=== PATIENT | male | born 1970 | race Caucasian/White ===

== ENCOUNTER 2021-09-17 06:56 | Day surgery (SDC) | payer OTHER, SELFPAY ==
[2021-09-13 11:00] VITALS: BMI 31.0
[2021-09-17 07:15] VITALS: BP 137/93; PULSE 79; RESP 18; TEMP 36.4; O2SAT 97
[2021-09-17] MEDS: sodium chloride 0.9% 1,000 ML 30 ML IV (07:35)
--- NOTE | 2021-09-17 07:38 | W.PM.OPSFHP ---
Same Day Surgery H&P Indication for Procedure/HPI DATE OF PROCEDURE: September 17, 2021 CHIEF COMPLAINT/INDICATIONFOR SURGICAL PROCEDURE: Screening PREOP DIAGNOSIS: Screen PLANNED PROCEDURE: Operation Date: 09/17/21 08:15 Proposed Procedures p Colonoscopy 58877,Z12.11(Not Applicable) - Wilfred Monroy MD Medications/Allergies* Home Medications Medication Instructions Recorded Confirmed Type lisinopril 10 mg tablet 5 mg PO DAILY 08/28/21 09/13/21 History omeprazole 20 mg capsule,delayed 20 mg PO DAILY PRN Acid Reflux 08/28/21 09/13/21 History release tamsulosin 0.4 mg capsule 0.4 mg PO DAILY 08/28/21 09/13/21 History cholecalciferol (vitamin D3) 125 125 mcg PO DAILY 09/13/21 09/13/21 History mcg (5,000 unit) tablet (Vitamin D3) coenzyme Q10 30 mg capsule (CoQ-10) 30 mg PO DAILY 09/13/21 09/13/21 History saw palmetto 80 mg capsule 320 mg PO DAILY 09/13/21 09/13/21 History vitamin A 2,400 mcg capsule 2,400 mcg PO DAILY 09/13/21 09/13/21 History zinc 50 mg tablet 50 mg PO DAILY 09/13/21 09/13/21 History Allergies/Adverse Reactions Allergy/AdvReac Type Severity Reaction Status Date / Time No Known Allergies Allergy Unverified 09/13/21 10:47 Current Medications: Generic Name Dose Route Start Last Admin Trade Name Freq PRN Reason Stop Dose Admin Sodium Chloride 1,000 mls @ 30 mls/hr 09/17/21 07:30 09/17/21 07:35 Sodium Chloride 0.9% IV 30 mls/hr .Q24H YOLANDA Administration Pertinent Exam Findings alert, oriented x 3, clear to auscultation bilaterally, regular rate & rhythm, operative site marked and procedure specific exam findings Recommendations Surgery/Procedure today Coding Level of Care Code 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
--- NOTE | 2021-09-17 07:42 | ANES.PREANE2 ---
Pre-Anesthetic Assessment Height/Weight: Height 1.75 m Weight 95.254 kg Temp Pulse Resp BP Pulse Ox O2 Del Method 97.6 F 79 18 137/93 97 09/17/21 07:15 09/17/21 07:15 09/17/21 07:15 09/17/21 07:15 09/17/21 07:15 09/17/21 07:15 Preop Diagnosis: Screen Operation Date: 09/17/21 08:15 Proposed Procedures p Colonoscopy 40504,Z12.11(Not Applicable) - Wilfred Monroy MD Familial anesthetic complications: None Was Beta Vani taken within 24 hours: N/A Was Clonidine taken within 24 hours: N/A Last intake: Intake Last Liquid Date 09/16/21 Last Liquid Time 22:00 Last Solid Date 09/15/21 Last Solid Time 22:00 Social No alcohol and No tobacco Exam alert, oriented x 3, clear to auscultation bilaterally and regular rate & rhythm Airway Mallampati: Class II Dentition: other (multiple misisng, implants, crowns) Comments: Comments: Full gudino CV/HEM Hypertension family hx of heart valve issues, but no personal history GI Gastroesophageal Reflux Disease Anesthetic Plan ASA status: 2 Anesthesia: MAC Risk of > 500 ml blood loss (7ml/kg in children): No Medications/Allergies Home Medications Medication Instructions Recorded Confirmed Last Taken Type lisinopril 10 mg tablet 5 mg PO DAILY 08/28/21 09/13/21 Unknown History omeprazole 20 mg capsule,delayed 20 mg PO DAILY PRN Acid Reflux 08/28/21 09/13/21 Unknown History release tamsulosin 0.4 mg capsule 0.4 mg PO DAILY 08/28/21 09/13/21 Unknown History peg 3350-electrolytes 236 240 ml PO Q10M #4,000 mL 09/11/21 09/13/21 Unknown Rx gram-22.74 gram-6.74 gram-5.86 gram solution (Golytely) cholecalciferol (vitamin D3) 125 125 mcg PO DAILY 09/13/21 09/13/21 Unknown History mcg (5,000 unit) tablet (Vitamin D3) coenzyme Q10 30 mg capsule (CoQ-10) 30 mg PO DAILY 09/13/21 09/13/21 Unknown History saw palmetto 80 mg capsule 320 mg PO DAILY 09/13/21 09/13/21 Unknown History vitamin A 2,400 mcg capsule 2,400 mcg PO DAILY 09/13/21 09/13/21 Unknown History zinc 50 mg tablet 50 mg PO DAILY 09/13/21 09/13/21 Unknown History Allergies Allergy/AdvReac Type Severity Reaction Status Date / Time No Known Allergies Allergy Unverified 09/13/21 10:47 Current Medications Generic Name Dose Route Start Last Admin Trade Name Freq PRN Reason Stop Dose Admin Sodium Chloride 1,000 mls @ 30 mls/hr 09/17/21 07:30 09/17/21 07:35 Sodium Chloride 0.9% IV 30 mls/hr .Q24H YOLANDA Administration Data Anesthesia Cardiac Studies: No Data to Display
[2021-09-17 08:34] VITALS: BP 124/83; PULSE 58; RESP 18; TEMP 36.2; O2SAT 96
--- NOTE | 2021-09-17 08:36 | ANE.PACU2 ---
Inpatient post-anesthesia follow up: Airway intact: Yes Vital signs: Temperature 97.6 F Pulse Rate 79 Respiratory Rate 18 Blood Pressure 137/93 Pulse Oximetry 97 Oxygen Delivery Me thod Room Air Oxygen Flow Rate Fraction of Inspir ed Oxygen Hydration adequate: Yes Nausea and vomiting: No Pain level: 1 Mental status: Baseline
[2021-09-17 08:44] VITALS: BP 127/82; PULSE 54; RESP 18; O2SAT 96
[2021-09-17 08:51] VITALS: BP 134/81; PULSE 57; RESP 18; O2SAT 96
== END 2021-09-17 09:10 | disposition home or self-care (01) ==
PROVIDERS: PCP Family Medicine; Visit Provider Internal Medicine
PROC: 0DJD8ZZ Inspection of Lower Intestinal Tract, Via Natural or Artificial Opening Endoscopic (ICD-10-PCS; CPT 45378; principal; 2021-09-17 08:15)
DX: Z12.11 Encounter for screening for malignant neoplasm of colon (principal); I10 Essential (primary) hypertension; Z82.49 Family history of ischemic heart disease and other diseases of the circulatory system; K21.9 Gastro-esophageal reflux disease without esophagitis
CPT/HCPCS: 45378; J2704; J7030

== ENCOUNTER 2023-12-11 10:39 | Emergency (ER) | payer OTHER, SELFPAY ==
[2023-12-11 10:43] VITALS: BP 175/105; PULSE 66; TEMP 36.4; O2SAT 99; BMI 30.1
[2023-12-11 11:42] VITALS: BP 170/110; PULSE 69; RESP 18; O2SAT 100
--- NOTE | 2023-12-11 11:57 | CT_ITS ---
WS: [id number] CT ABDOMEN AND PELVIS WITH CONTRAST HISTORY: abd pain TECHNIQUE: Imaging performed of the abdomen and pelvis with IV contrast. Single phase imaging of the abdomen. Coronal and sagittal reformats are submitted. All CT scans at [facility] use at [address] one of these dose optimization techniques: automated exposure control; mA and/or kV adjustment per patient size (includes targeted exams where dose is matched to clinical indication); or iterative re construction. IV CONTRAST: Omnipaque 350; 100 mL IV. Oral contrast: No DLP: 749.63 mGy.cm COMPARISON: None available. Lower thorax: Dependent changes at the lung bases. Heart is normal size. Small hiatal hernia. Liver/biliary system: Heterogeneous enhancement attenuation throughout the liver. No mass. Gallbladder: Gallbladder is mildly hydropic with a transverse diameter of 4.8 cm. There is mild irreg ularity of the wall and a small amount of edema. No definite stones identified by CT. Pancreas: Normal size pancreas and pancreatic duct. No adjacent inflammation. Spleen: Normal size spleen. No mass or infarct. Adrenal glands: Normal. Right kidney: Normal. Left kidney: Normal. Aorta: Normal. Lymphadenopathy: None. Free fluid: Very small amount of fluid adjacent to the inferior RIGHT lobe of the liver. GI tract: Nondistended stomach. No small bowel obstruction. 14 mm outpouching along the medial curvat ure of the duodenum contains air. Differential is contained duodenal ulcer or a small diverticulum. T here is mild hyperemia of the adjacent duodenum. There is additional hyperemia of the proximal duoden um with focus of air in the duodenal wall with hyperemia. Suspect additional duodenal ulcer. Diffuse constipation. Normal appendix. Abdominal wall: Ventral abdominal wall hernias. Hernias contain fat only. Pelvis: No free fluid or adenopathy within the pelvis. Prostate gland is enlarged encroaching upon th e bladder. Central calcifications. Bones: Unremarkable. CT/CT abdomen pelvis w con* [id number] IMPRESSION: 1. Mildly hydropic gallbladder with very minimal wall irregularity. No signifi cant pericholecystic fluid. Consider follow-up gallbladder ultrasound to evalua te for pericholecystic edema or stones. 2. Focal outpouching with air from the medial duodenum measures 14 mm. Small c ontained duodenal ulcer versus diverticulum. 3. Additional duodenal focus of air extending into the submucosa suspicious fo r early duodenal ulcer. There is associated hyperemia at this location. 4. Ventral abdominal wall hernia. 5. Tiny amount of fluid adjacent to the liver. 6. Normal appendix.
--- NOTE | 2023-12-11 12:03 | W.ED.ABDPA2 ---
HPI - Abdominal Pain General: Chief Complaint: Abdominal Pain Stated Complaint: Gastric pressure, bloating, pain - [facility] Time Seen by Provider: 12/11/23 11:40 Source: patient Mode of arrival: ambulatory Limitations: no limitations History of Present Illness: 53-year-old male who states that last 2 days may have some epigastric abdominal pain he states he been feeling bloating and fullness especially after eating states has been belching a lot as well he states he had gastritis in the past he is to be on omeprazole but does not take it anymore he denies any fevers denies any chest pain. Associated Symptoms: Denies chills, diarrhea, fever(s), nausea and vomiting Related Data Home Medications Medication Instructions Recorded Confirmed tamsulosin 0.4 mg capsule 0.4 mg PO DAILY 08/28/21 12/11/23 cholecalciferol (vitamin D3) 125 125 mcg PO DAILY 09/13/21 12/11/23 mcg (5,000 unit) tablet (Vitamin D3) vitamin A 2,400 mcg capsule 2,400 mcg PO DAILY 09/13/21 12/11/23 coenzyme Q10 30 mg capsule 30 mg PO DAILY 12/11/23 12/11/23 lisinopril 20 mg tablet 10 mg PO DAILY 12/11/23 12/11/23 magnesium 250 mg tablet 500 mg PO DAILY 12/11/23 12/11/23 methylphenidate HCl 20 mg tablet 20 mg PO TID 12/11/23 12/11/23 selenium 100 mcg tablet 100 mcg PO DAILY 12/11/23 12/11/23 vitamin C 45 mg-zinc citrate 3.75 2 tab PO DAILY 12/11/23 12/11/23 mg-elderberry 50 mg chewable tablet ([employer]) Previous Rx's Medication Instructions Recorded amoxicillin 500 mg-potassium 1 tab PO BID #60 tabs 12/11/23 clavulanate 125 mg tablet (Augmentin) ondansetron 4 mg disintegrating 4 mg PO Q6H PRN nausea and 12/11/23 tablet vomiting #14 tabs pantoprazole 40 mg tablet,delayed 40 mg PO DAILY #60 tabs 12/11/23 release (Protonix) Allergies Allergy/AdvReac Type Severity Reaction Status Date / Time No Known Allergies Allergy Verified 12/11/23 10:49 Review of Systems Const: Denies: fever(s), chills, body aches or change in appetite Eyes: Denies: blurry vision or eye discomfort ENMT: Denies: throat pain or dental pain Card: Denies: chest pain Resp: Denies: dyspnea GI: Denies: abdominal pain, nausea, vomiting or diarrhea Musc: Denies: neck pain or back pain Skin/Breast: Denies: rash Neuro: Denies: headache(s) Physical Exam Const: COMMON NORMALS: no acute distress, patient oriented x3 and healthy appearing HENMT: COMMON NORMALS: normocephalic and atraumatic HEAD & SCALP: normocephalic and atraumatic Neck/C-Spine: COMMON NORMALS: full ROM and supple Chest: COMMONS NORMALS: normal inspection of the chest Resp: COMMON NORMALS: normal respiratory effort, No retractions, No use of accessory muscles and clear to auscultation bilaterally AUSCULTATION: clear to auscultation bilaterally Cardio: COMMON NORMALS: regular rate, regular rhythm and No murmurs present (Cardio) RATE: regular rate RHYTHM: regular rhythm GI: COMMON NORMALS: Normal to inspection, nondistended, normoactive bowel sounds present, Soft to palpation, non-tender and no masses PALPATION: Yes Soft to palpation Extremity: COMMON NORMALS: normal to inspection and full ROM Neuro: COMMON NORMALS: patient oriented x3, moves all extremities and no focal motor deficits Psych: COMMON NORMALS: mental status grossly normal, Normal thought process present and cooperative THOUGHT PROCESS: Normal thought process present Skin: COMMON NORMALS: no rashes or lesions noted and no wounds GENERAL SKIN EXAM: no rashes or lesions noted Course Vital Signs: Vital signs: Vital Signs Temperature 97.6 F 12/11/23 10:43 Pulse Rate 66 12/11/23 14:00 Respiratory Rate 16 12/11/23 14:00 Blood Pressure 139/74 12/11/23 14:00 Pulse Oximetry 100 12/11/23 14:00 Oxygen Delivery Me thod Room Air 12/11/23 14:00 MDM - Abdominal Pain Medical Decision Making Patient presents here with abdominal pain and have enlarged gallbladder on ultrasound but no signs of cholecystitis mildly elevated bilirubin here but no signs of common bile duct obstruction no signs of ascending cholangitis his pain here was resolved after GI cocktail abdominal exam at discharge is benign I did speak to surgeon Dr. Liz Angel will start him on Augmentin and Protonix and we will get him follow-up with surgery he is to return to ER if he is worsening he understands agrees to plan. Medical Records I reviewed the patient's medical records. Lab Data I reviewed the patient's lab results. 12/11/23 11:20 12/11/23 11:20 Labs/Radiology: Radiology Impressions Abdomen/Pelvis CT 12/11/23 11:57 IMPRESSION: 1. Mildly hydropic gallbladder with very minimal wall irregularity. No significant pericholecystic fluid. Consider follow-up gallbladder ultrasound to evaluate for pericholecystic edema or stones. 2. Focal outpouching with air from the medial duodenum measures 14 mm. Small contained duodenal ulcer versus diverticulum. 3. Additional duodenal focus of air extending into the submucosa suspicious for early duodenal ulcer. There is associated hyperemia at this location. 4. Ventral abdominal wall hernia. 5. Tiny amount of fluid adjacent to the liver. 6. Normal appendix. Gallbladder Ultrasound 12/11/23 13:03 IMPRESSION: 1. Mild gallbladder hydrops. No stones or pericholecystic fluid. No Bridges sign elicited. The gallbladder wall is top normal size to slightly enlarged. No specific findings to suggest strong correlation with acute cholecystitis. 2. No bile duct dilatation. Laboratory Results WBC 8.51 10^3/uL (3.29-11.43) 12/11/23 11:20 RBC 5.97 10^6/uL (3.85-5.65) H 12/11/23 11:20 Hgb 17.60 g/dL (11.27-16.99) H 12/11/23 11:20 Hct 50.1 % (37-53) 12/11/23 11:20 MCV 83.9 fl (82-101) 12/11/23 11:20 MCH 29.5 pg (27-33) 12/11/23 11:20 MCHC 35.1 g/dL (30-55) 12/11/23 11:20 RDW 12.7 % (12.1-15.1) 12/11/23 11:20 Plt Count 198 10^3/cmm (157-399) 12/11/23 11:20 MPV 9.5 fL (7.4-10.4) 12/11/23 11:20 Neut % (Auto) 82.8 % 12/11/23 11:20 Lymph % (Auto) 7.5 % 12/11/23 11:20 Rice % (Auto) 8.6 % 12/11/23 11:20 Eos % (Auto) 0.2 % 12/11/23 11:20 Baso % (Auto) 0.4 % 12/11/23 11:20 Neut # (Auto) 7.05 10^3/uL (1.8-7.7) 12/11/23 11:20 Lymph # (Auto) 0.6 10^3/uL (0.8-4.8) L 12/11/23 11:20 Rice # (Auto) 0.7 10^3/uL (0.2-0.9) 12/11/23 11:20 Eos # (Auto) 0.0 10^3/uL (0.0-0.8) 12/11/23 11:20 Baso # (Auto) 0.0 10^3/uL (0.0-0.1) 12/11/23 11:20 Nucleated RBC % (auto) 0 % 12/11/23 11:20 Nucleated RBCs # 0.0 /100WBC 12/11/23 11:20 Sodium 138 mmol/L (136-145) 12/11/23 11:20 Potassium 3.8 mmol/L (3.5-5.1) 12/11/23 11:20 Chloride 100 mmol/L (98-107) 12/11/23 11:20 Carbon Dioxide 25 mmol/L (22-29) 12/11/23 11:20 Anion Gap 16.8 (5-19) 12/11/23 11:20 BUN 16 mg/dL (6-20) 12/11/23 11:20 Creatinine 1.2 mg/dL (0.7-1.2) 12/11/23 11:20 GFR Calculation 62.9 mL/min (90-130) L 12/11/23 11:20 Glucose 118 mg/dL (65-115) H 12/11/23 11:20 Calculated Osmolality 288 mOsm/kg (285-295) 12/11/23 11:20 Calcium 8.9 mg/dL (8.5-10.5) 12/11/23 11:20 Total Bilirubin 3.5 mg/dL (0.15-1.2) H 12/11/23 11:20 AST 95 U/L (0-40) H 12/11/23 11:20 ALT 364 U/L (0-41) H 12/11/23 11:20 Alkaline Phosphatase 281 U/L (40-130) H 12/11/23 11:20 Total Protein 7.5 g/dL (6.6-8.7) 12/11/23 11:20 Albumin 4.3 g/dL (3.5-5.2) 12/11/23 11:20 Globulin 3.2 g/dL (1.3-4.6) 12/11/23 11:20 Lipase 39 U/L (13-60) 12/11/23 11:20 Urine Color Dark yellow (Yellow) A 12/11/23 13:20 Urine Appearance Clear (CLEAR) 12/11/23 13:20 Urine pH 7.5 (5-7) 12/11/23 13:20 Ur Specific [place] 1.040 (1.005-1.030) H 12/11/23 13:20 Urine Protein 1+ (Negative) A 12/11/23 13:20 Urine Glucose (UA) Negative (Normal) 12/11/23 13:20 Urine Ketones 1+ (Negative) H 12/11/23 13:20 Urine Blood Negative (Negative) 12/11/23 13:20 Urine Nitrate Negative (Negative) 12/11/23 13:20 Urine Bilirubin Negative (Negative) 12/11/23 13:20 Urine Urobilinogen 1.0 mg/dL (Negative) 12/11/23 13:20 Ur Leukocyte Esterase Negative (Negative) 12/11/23 13:20 Urine RBC 0-2 /hpf (0-2) 12/11/23 13:20 Urine WBC 0-5 /hpf (0-5) 12/11/23 13:20 Ur Squamous Epith Cells 0-5 /hpf (0-5) 12/11/23 13:20 Amorphous Sediment Not Reportable 12/11/23 13:20 Urine Bacteria None seen /hpf (NONE) 12/11/23 13:20 Hyaline Casts 0-4 /lpf H 12/11/23 13:20 All radiology interpretation(s) finalized by discharge EKG Data EKG 1: I personally reviewed and interpreted this EKG as follows: EKG interpretation date: 12/11/23 EKG interpretation time: 12:20 Interpretation: nsr hr [address] or t wave abnormalities qrs 103 qtc 426 Discharge Plan Discharge Patient Disposition: Home Clinical Impression: Abdominal pain Condition: Stable Prescriptions: New pantoprazole [Protonix] 40 mg tablet,delayed release (DR/EC) 40 mg PO DAILY Qty: 60 0RF ondansetron 4 mg tablet,disintegrating 4 mg PO Q6H PRN (Reason: nausea and vomiting) Qty: 14 0RF amoxicillin-pot clavulanate [Augmentin] 500-125 mg tablet 1 tab PO BID Qty: 60 0RF No Action tamsulosin 0.4 mg capsule 0.4 mg PO DAILY vitamin A 2,400 mcg Capsule 2,400 mcg PO DAILY cholecalciferol (vitamin D3) [Vitamin D3] 125 mcg (5,000 unit) Tablet 125 mcg PO DAILY lisinopril 20 mg Tablet 10 mg PO DAILY magnesium 250 mg Tablet 500 mg PO DAILY selenium 100 mcg Tablet 100 mcg PO DAILY coenzyme Q10 [CoQ-10] 30 mg Capsule 30 mg PO DAILY [employer] 45-3.75-50 mg Tablet,Chewable 2 tab PO DAILY methylphenidate HCl 20 mg tablet 20 mg PO TID Discharge Orders: Discharge ED (Routine); Ordered 12/11/23 Ordered By: Mya Jimenez Referrals: Flaquita Isabel MD [Primary Care Provider] - Discharge Diet: Advance as tolerated Discharge Activity: Resume usual activity Patient Instructions: Abdominal Pain (ED) Coding Level of Care Code 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
[2023-12-11] MEDS: lidocaine 2% viscous 15 ML, aluminum-mag hydrox-simethicon 30 ML, sucralfate oral liq 1 GM PO (12:17)
[2023-12-11] MEDS: ondansetron 2 mg/ML SDV 2 mL 4 MG IVP (12:17)
--- NOTE | 2023-12-11 12:20 | ECG_ITS ---
[facility] Test Date: 2023-12-11 Pat Name: Khris Scott Department: Room: Gender: Male Color Tester: : 1970 Requested By: Mya Jimenez Order Number: [id number] Franki MD: Rickey Amaya M.D. Measurements Intervals [place] Rate: 63 P: 35 MT: 140 QRS: 10 QRSD: 103 T: 29 QT: 419 QTc: 430 Interpretive Statements SINUS RHYTHM POSSIBLE LEFT ATRIAL ENLARGEMENT [-0.1mV P-WAVE IN V1/V2] SEPTAL MYOCARDIAL INFARCTION , OF INDETERMINATE AGE No previous ECG available for comparison Electronically Signed On 12-11-2023 17:13:30 CDT by Rickey Amaya M.D. [email or web address]
[2023-12-11 12:27] LABS: Basophils % 0.4 %; Eosinophils % 0.2 %; Hematocrit 50.1 % (37-53); Lymphocytes # 0.6 10^3/uL (0.8-4.8); Lymphocytes % 7.5 %; Mean Corpuscular HGB Conc 35.1 g/dL (30-55); Mean Corpuscular Hemoglobin 29.5 pg (27-33); Mean Corpuscular Volume 83.9 fl (82-101); Mean Platelet Volume 9.5 fL (7.4-10.4); Monocytes # 0.7 10^3/uL (0.2-0.9); Monocytes % 8.6 %; Neutrophils # 7.05 10^3/uL (1.8-7.7); Neutrophils % 82.8 %; Nucleated Red Blood Cells % 0 %; Platelet Count 198 10^3/cmm (157-399); Red Blood Count 5.97 10^6/uL (3.85-5.65); Red Cell Distribution Width 12.7 % (12.1-15.1); White Blood Count 8.51 10^3/uL (3.29-11.43)
[2023-12-11 12:38] LABS: Alanine Aminotransferase 364 U/L (0-41); Albumin Level 4.3 g/dL (3.5-5.2); Alkaline Phosphatase 281 U/L (40-130); Anion Gap 16.8 (5-19); Aspartate Amino Transferase 95 U/L (0-40); Blood Urea Nitrogen 16 mg/dL (6-20); Calcium 8.9 mg/dL (8.5-10.5); Carbon Dioxide 25 mmol/L (22-29); Chloride 100 mmol/L (98-107); Creatinine Clr Calc Pharmacy 78.1461; Globulin 3.2 g/dL (1.3-4.6); Glomerular Filtration Rate 62.9 mL/min (90-130); Glucose 118 mg/dL (65-115); Lipase 39 U/L (13-60); Osmolality Calculated 288 mOsm/kg (285-295); Potassium 3.8 mmol/L (3.5-5.1); Sodium 138 mmol/L (136-145); Total Bilirubin 3.5 mg/dL (0.15-1.2); Total Protein 7.5 g/dL (6.6-8.7)
--- NOTE | 2023-12-11 13:03 | US_ITS ---
WS: [id number] RIGHT UPPER QUADRANT ULTRASOUND HISTORY: ruq pain COMPARISON: None available. Liver: 16.9 cm in length. Normal size liver and echogenicity. No bile duct dilatation or mass. Portal Vein: Normal hepatopetal flow with monophasic waveform. Gallbladder: Mildly hydropic gallbladder. No pericholecystic fluid. No stones are identified. The gal lbladder wall is just slightly enlarged to 4 mm. CBD: 0.4 cm Pancreas: Normal size and echogenicity. Right kidney: 9.7 cm in length. Normal size and echogenicity. No hydronephrosis or mass. Aorta and IVC: Unremarkable abdominal aorta and IVC. No ascites. US/US gall bladder [id number] IMPRESSION: 1. Mild gallbladder hydrops. No stones or pericholecystic fluid. No Bridges sig n elicited. The gallbladder wall is top normal size to slightly enlarged. No sp ecific findings to suggest strong correlation with acute cholecystitis. 2. No bile duct dilatation.
[2023-12-11 13:31] VITALS: BP 180/106; PULSE 64; RESP 18; O2SAT 96
[2023-12-11] MEDS: hyDRALAzine 20 mg/mL INJ 1 mL 10 MG IVP (13:33)
[2023-12-11 13:41] LABS: Bilirubin Urine Negative (Negative); Blood Urine Negative (Negative); Glucose Urine UA Negative (Normal); Ketones Urine 1+ (Negative); Leukocyte Esterase Urine Negative (Negative); Nitrate Urine Negative (Negative); Protein Urine 1+ (Negative); Urine Appearance Clear (CLEAR); Urine Color Dark Yellow (Yellow); pH Urine 7.5 (5-7)
[2023-12-11 13:47] LABS: Add Urine Microscopic? YES; Bacteria Urine None Seen /hpf; Hyaline Casts Urine 0-4 /lpf; RBC Urine 0-2 /hpf (0-2); Squamous Epithelial Cell Urine 0-5 /hpf (0-5); WBC Urine 0-5 /hpf (0-5)
--- NOTE | 2023-12-11 13:50 | PC.PHAR ---
Pt states he attempted to take morning medications and promptly threw them up.
[2023-12-11 13:56] LABS: Add Urine Culture? No
[2023-12-11 14:00] VITALS: BP 139/74; PULSE 66; RESP 16; O2SAT 100
[2023-12-11 14:50] VITALS: BP 161/90; PULSE 89; O2SAT 96
--- NOTE | 2023-12-12 07:32 | DCPLANNER ---
message sent to gen surg for er f/u
== END 2023-12-11 14:51 | disposition home or self-care (01) ==
PROVIDERS: Emergency Provider Emergency Medicine; PCP Family Medicine
DX: R10.9 Unspecified abdominal pain (principal)
CPT/HCPCS: 36415; 74177; 76705; 80053; 81001; 83690; 85025; 93005; 96374; 96375; 99285; J0360; J2405; Q9967

== ENCOUNTER → 2023-12-18 13:51 | Outpatient (BNVA) | payer OTHER, SELFPAY | PROVIDERS: PCP Family Medicine; Referring Provider Emergency Medicine; Visit Provider Student in an Organized Health Care Education/Training Program | DX: R10.11 Right upper quadrant pain (principal) | CPT/HCPCS: 36415; 80053; 82150; 83690; 85025; 86705; 86706; 86709; 86803; 87340; 99204 ==

== ENCOUNTER → 2024-01-06 08:48 | Outpatient (BNVA) | payer OTHER, SELFPAY | PROVIDERS: PCP Family Medicine; Visit Provider Student in an Organized Health Care Education/Training Program | DX: K81.9 Cholecystitis, unspecified (principal) | CPT/HCPCS: 99214 ==

== ENCOUNTER 2024-02-20 09:31 | Outpatient (CLI) | payer OTHER, SELFPAY ==
--- NOTE | 2024-02-20 09:34 | US_ITS ---
WS: [id number] RIGHT UPPER QUADRANT ULTRASOUND HISTORY: RUQ PAIN COMPARISON: 12/11/2023 Liver: 14.3 cm in length. Normal size liver and echogenicity. No bile duct dilatation or mass. Portal Vein: Normal hepatopetal flow with monophasic waveform. Gallbladder: Contracted gallbladder. Wall is diffusely thickened due to contraction. There is a lobul ated soft tissue mass within the gallbladder which does not demonstrate increased vascularity. Maximu m diameter this lobulated mass is 1.2 cm. Mass appears very slightly mobile CBD: 0.3 cm Pancreas: Normal size and echogenicity. Right kidney: 9.8 cm in length. Normal size and echogenicity. No hydronephrosis or mass. Aorta and IVC: Unremarkable abdominal aorta and IVC. No ascites. US/US abdomen limited [id number] IMPRESSION: 1. Slightly contracted gallbladder with a nonshadowing 1.2 cm mass. Suspect th is is tumefactive sludge. Recommend repeat gallbladder imaging in 4 to 6 weeks. It well be important the patient is fasting. If this mass persists this may be a polyp or neoplasm. Favor this may be tumefactive sludge at this time. 2. No hepatobiliary duct dilatation.
== END 2024-02-20 09:32 | disposition home or self-care (01) ==
LOC: RAD 09:31
PROVIDERS: PCP Family Medicine; Visit Provider Nurse Practitioner Family
DX: D37.6 Neoplasm of uncertain behavior of liver, gallbladder and bile ducts (principal)
CPT/HCPCS: 76705

== ENCOUNTER 2024-03-05 07:53 | Outpatient (CLI) | payer OTHER, SELFPAY ==
--- NOTE | 2024-03-05 08:05 | NM_ITS ---
WS: [id number] NUCLEAR MEDICINE HIDA SCAN WITH GALLBLADDER EJECTION FRACTION HISTORY: RUQ PAIN COMPARISON: Ultrasound 02/20/2024 TECHNIQUE: The patient was intravenously injected with 8.3 mCi of TC99m Mebrofenin. Immediate imaging over the right upper quadrant was followed by 5 minute image and additional images for a total of 60 minutes. Normal uptake of radiotracer throughout the liver. Activity identified in the gallbladder at 30 minutes and moderately well by 60 minutes. Activity in the proximal small bowel was seen by 20 minutes. Good washout of the radiotracer from the liver by 60 minutes. The patient then drank 8 ounces of Ensure Plus. Ejection fraction at 60 minutes was 80%. Normal GB ej ection fraction is 35-75%. Post fatty meal symptoms: None. NM/NM hepatobiliary w phar* [id number] IMPRESSION: 1. Normal HIDA scan. 2. Normal gallbladder ejection fraction.
== END 2024-03-05 07:54 | disposition home or self-care (01) ==
LOC: RAD 07:54
PROVIDERS: PCP Family Medicine; Visit Provider Nurse Practitioner Family
DX: R10.11 Right upper quadrant pain (principal)
CPT/HCPCS: 78227; A9537

== ENCOUNTER 2024-04-26 15:11 | Outpatient (CLI) | payer OTHER, SELFPAY ==
--- NOTE | 2024-04-26 15:46 | CT_ITS ---
WS: [id number] CT ABDOMEN AND PELVIS NONCONTRAST HISTORY: FOLLOW US MASS TECHNIQUE: Imaging performed through the abdomen and pelvis. Coronal and sagittal reformats are submitted. All CT scans at [facility] use at least one of these dose optimization techniques: automated exposure control; mA and/or kV adjustment per patient size (includes targeted exams where dose is matched to clinical indication); or iterative reconstruction. DLP: 477.43 mGy.cm COMPARISON: CT 12/11/2023, ultrasound 02/20/2024 Lower thorax: Lung bases are clear. Visualized heart is normal. Small hiatal hernia. Liver: Normal size liver. No mass or bile duct dilatation. Gallbladder: Normal gallbladder. No pericholecystic fluid or cholelithiasis. No gallbladder wall thickening. Pancreas: Normal size and attenuation. Normal pancreatic duct. No pancreatitis or mass. Spleen: Normal. Splenule Adrenal glands: Normal. No mass. Right kidney: Normal size kidney with no mass or hydronephrosis. Left kidney: Normal size kidney with no mass or hydronephrosis. Aorta: Normal abdominal aorta, no aneurysm or atherosclerosis. No free fluid, intraperitoneal air or significant lymphadenopathy. GI tract: Stomach is slightly distended. No small bowel obstruction. No colon obstruction. Normal appendix. No significant diverticular disease. No colitis. Abdominal wall: Ventral abdominal wall hernia contains omental fat. There are 2 adjacent abdominal wall defects along the midline at the level of the umbilicus. The largest is 8.7 mm. Both of these hernias contain omentum with mild stranding. There is also omental stranding in the peritoneal cavity just deep to the hernias. Pelvis: No free fluid or adenopathy. Minimally distended bladder. Osseous structures: Unremarkable. CT/CT abdomen pelvis wo con [id number] IMPRESSION: 1. Unremarkable gallbladder by noncontrast CT. Noncontrast CT is not specific or sensitive to evaluate the gallbladder for pathology. Recommend follow-up gal lbladder ultrasound to reevaluate the intraluminal contents of the gallbladder as described on 12/11/2023. Tumefactive sludge versus polyp. 2. No GI tract obstruction. 3. Ventral abdominal wall hernias containing omental fat only. There are 2 sma ll adjacent ventral abdominal wall hernias near the umbilicus. These both conta in omental fat with stranding. There is fat stranding in the peritoneal cavity deep to each of the hernias. Suggesting mild inflammation. Developing fat necro sis is a possibility. 4. No ascites.
== END 2024-04-26 15:12 | disposition home or self-care (01) ==
PROVIDERS: PCP Family Medicine; Visit Provider Family Medicine
DX: Z01.89 Encounter for other specified special examinations (principal); K43.9 Ventral hernia without obstruction or gangrene; R93.5 Abnormal findings on diagnostic imaging of other abdominal regions, including retroperitoneum; K44.9 Diaphragmatic hernia without obstruction or gangrene
CPT/HCPCS: 74176